=== PATIENT | male | born 1960 | race African-American/Black ===

== ENCOUNTER 2019-04-21 18:32 | Inpatient (IN) ==
[2019-04-21 22:14] LABS: Basophils # 0.1 10*3/uL (0.0-0.2); Basophils % 0.5 % (0.0-0.8); Eosinophils % 0.4 % (0.00-10.9); Hematocrit 35.8 VOL% (42.0-52.0); Hemoglobin 12.6 GM/DL (14.0-18.0); Immature Granulocytes % 0.7 %; Immature Granulocytes Absolute 0.08 #; Lymphocytes # 1.4 10*3/uL (1.4-4.0); Lymphocytes % 13.3 % (21.2-54.2); Mean Corpuscular HGB Conc 35.2 GM/DL (32-36); Mean Corpuscular Volume 83.6 FL (87-102); Mean Platelet Volume 11.1 FL (9.6-12.0); Monocytes % 15.7 % (1.7-12.7); Neutrophils % 69.4 % (38.7-73.9); Platelet Count 266 T/CUMM (130-400); Red Blood Count 4.28 MC/CUMM (3.8-5.5); Red Cell Distribution Width 18.7 % (9.3-17.3); White Blood Count 10.7 T/CUMM (4-12)
[2019-04-21 22:28] LABS: INR 1.1; PT Patient Result 12.3 SECS; Partial Thromboplastin Time 26.6 SECS (0-40)
[2019-04-21 22:36] LABS: Albumin 3.1 G/DL (3.4-5.0); Calcium 9.6 MG/DL (8.5-10.1); Osmolality,Calculated 281.3 MOS/KG (273-304); Total Protein 7.2 G/DL (6.4-8.3)
[2019-04-21 22:37] LABS: Eosinophils 1 % (0-10); Hypochromasia Slight; Lymphocytes 16 % (20-55); Platelet Estimate Adequate; Segmented Neutrophils 68 % (50-85); Target Cells 1+; Total Cells Counted 100
[2019-04-21 22:39] LABS: Bilirubin,Total 19.3 MG/DL (0.2-1.0)
[2019-04-22] MEDS ORDERED: ONDANSETRON 4 MG/2 ML VIAL IV PRN (00:07)
[2019-04-22] MEDS: hydrOXYzine HCL 25 MG TABLET PO PRN ×4 (01:56→22:46)
[2019-04-22 07:13] LABS: Basophils # 0.1 10*3/uL (0.0-0.2); Basophils % 0.5 % (0.0-0.8); Eosinophils # 0.1 10*3/uL (0.0-0.87); Eosinophils % 0.5 % (0.00-10.9); Hematocrit 32.8 VOL% (42.0-52.0); Hemoglobin 12.1 GM/DL (14.0-18.0); Immature Granulocytes % 1.2 %; Immature Granulocytes Absolute 0.11 #; Lymphocytes # 1.7 10*3/uL (1.4-4.0); Lymphocytes % 18.5 % (21.2-54.2); Mean Corpuscular HGB Conc 36.9 GM/DL (32-36); Mean Corpuscular Volume 81.8 FL (87-102); Monocytes % 17.7 % (1.7-12.7); Neutrophils % 61.6 % (38.7-73.9); Platelet Count 266 T/CUMM (130-400); Red Blood Count 4.01 MC/CUMM (3.8-5.5); Red Cell Distribution Width 18.7 % (9.3-17.3); White Blood Count 9.2 T/CUMM (4-12)
[2019-04-22 07:27] LABS: Albumin 2.7 G/DL (3.4-5.0); Calcium 9.4 MG/DL (8.5-10.1); Osmolality,Calculated 280.3 MOS/KG (273-304); Total Protein 6.9 G/DL (6.4-8.3)
[2019-04-22 07:33] LABS: Bilirubin,Total 17.5 MG/DL (0.2-1.0)
[2019-04-22 07:49] LABS: Eosinophils 2 % (0-10); Hypochromasia Slight; Lymphocytes 21 % (20-55); Platelet Estimate Adequate; Segmented Neutrophils 58 % (50-85); Target Cells Few; Total Cells Counted 100
[2019-04-22] MEDS ORDERED: POTASSIUM CHLORIDE 20 MEQ/15 ML UDCUP PER TUBE PRN (14:37)
[2019-04-22] MEDS: POTASSIUM CHLORIDE 20 MEQ TABLET PO PRN ×2 (20:46→23:10)
[2019-04-22] MEDS: amLODIPine 5 MG TABLET PO SCH (20:47)
[2019-04-23] MEDS: POTASSIUM CHLORIDE 20 MEQ TABLET PO PRN ×2 (01:14→04:07)
[2019-04-23] MEDS: hydrOXYzine HCL 25 MG TABLET PO PRN (04:06)
[2019-04-23 05:21] LABS: Basophils # 0.1 10*3/uL (0.0-0.2); Basophils % 0.5 % (0.0-0.8); Eosinophils # 0.1 10*3/uL (0.0-0.87); Eosinophils % 1.1 % (0.00-10.9); Hematocrit 32.7 VOL% (42.0-52.0); Hemoglobin 11.6 GM/DL (14.0-18.0); Immature Granulocytes % 0.6 %; Immature Granulocytes Absolute 0.06 #; Lymphocytes # 1.7 10*3/uL (1.4-4.0); Lymphocytes % 17.7 % (21.2-54.2); Mean Corpuscular HGB Conc 35.5 GM/DL (32-36); Mean Platelet Volume 11.7 FL (9.6-12.0); Monocytes % 17.5 % (1.7-12.7); Neutrophils % 62.6 % (38.7-73.9); Platelet Count 261 T/CUMM (130-400); Red Blood Count 3.94 MC/CUMM (3.8-5.5); White Blood Count 9.3 T/CUMM (4-12)
[2019-04-23 05:33] LABS: INR 1.2; PT Patient Result 12.7 SECS
[2019-04-23 05:45] LABS: Eosinophils 2 % (0-10); Hypochromasia 1+; Lymphocytes 19 % (20-55); Platelet Estimate Adequate; Segmented Neutrophils 64 % (50-85); Target Cells Few; Total Cells Counted 100
[2019-04-23 07:49] LABS: Osmolality,Calculated 280.3 MOS/KG (273-304)
[2019-04-23] MEDS ORDERED: INDOMETHACIN SUPP 50 MG SUPP RECTAL ONE (08:00)
[2019-04-23 08:34] LABS: Albumin 2.5 G/DL (3.4-5.0); Calcium 9.5 MG/DL (8.5-10.1); Osmolality,Calculated 280.3 MOS/KG (273-304); Total Protein 6.9 G/DL (6.4-8.3)
[2019-04-23 08:38] LABS: Bilirubin,Total 18.6 MG/DL (0.2-1.0)
[2019-04-23 08:45] LABS: Albumin 2.5 G/DL (3.4-5.0); Bilirubin,Direct 13.75 MG/DL (0.0-0.20); Total Protein 6.7 G/DL (6.4-8.3)
[2019-04-23 08:54] LABS: Bilirubin,Total 17.7 MG/DL (0.2-1.0)
[2019-04-23] MEDS ORDERED: SUCCINYLCHOLINE 200 MG/10 ML VIAL ONE ×2 (10:00→15:32)
[2019-04-23] MEDS ORDERED: PROPOFOL 200 MG/20 ML VIAL IV ONE ×2 (10:00→15:31)
[2019-04-23] MEDS ORDERED: ESMOLOL 100 MG/10 ML VIAL IV ONE ×2 (10:00→15:32)
[2019-04-23] MEDS ORDERED: PHENYLEPHRINE 1 MG/10 ML SYRINGE IV ONE ×2 (10:00→15:32)
[2019-04-23] MEDS ORDERED: LIDOCAINE 100 MG/5 ML SYRINGE ONE (10:00)
[2019-04-23] MEDS ORDERED: ROCURONIUM 100 MG/10 ML VIAL IV ONE ×2 (10:00→15:32)
[2019-04-23] MEDS ORDERED: GLYCOPYRROLATE 0.4 MG/2 ML VIAL ONE ×2 (10:00→15:32)
[2019-04-23] MEDS ORDERED: fentaNYL 100 MCG/2 ML VIAL ONE ×2 (10:04→15:32)
[2019-04-23] MEDS ORDERED: MIDAZOLAM 2 MG/2 ML VIAL ONE ×2 (10:04→13:17)
[2019-04-23] MEDS ORDERED: ePHEDrine 50 MG/ML AMP ONE (12:10)
[2019-04-23] MEDS: LACTATED RINGERS 1,000 ML IV SCH (12:12)
[2019-04-23] MEDS ORDERED: CIPROFLOXACIN 400 MG/200 ML PREMIX IV ONE (14:02)
[2019-04-23] MEDS ORDERED: HYDROmorphone 2 MG/1 ML VIAL ONE (15:20)
[2019-04-23] MEDS ORDERED: SEVOFLURANE 1 UNIT/15 MINUTE INH ONE (15:32)
[2019-04-23] MEDS ORDERED: NEOSTIGMINE 10 MG/10 ML VIAL ONE (15:32)
[2019-04-23] MEDS ORDERED: LACTATED RINGERS 2,000 ML IV ONE (15:32)
[2019-04-23] MEDS: CIPROFLOXACIN INJ 400 MG in PREMIX 1 EACH IV SCH (18:48)
[2019-04-23 19:42] LABS: Carcinoembryonic Antigen 2.9 NG/ML (0.0-5.0)
[2019-04-23] MEDS: amLODIPine 5 MG TABLET PO SCH (20:34)
[2019-04-24] MEDS: CIPROFLOXACIN INJ 400 MG in PREMIX 1 EACH IV SCH (05:45)
[2019-04-24 08:06] LABS: Basophils % 0.2 % (0.0-0.8); Hematocrit 35.3 VOL% (42.0-52.0); Hemoglobin 12.7 GM/DL (14.0-18.0); Immature Granulocytes % 0.7 %; Immature Granulocytes Absolute 0.11 #; Lymphocytes # 0.8 10*3/uL (1.4-4.0); Lymphocytes % 4.6 % (21.2-54.2); Mean Corpuscular Volume 82.7 FL (87-102); Mean Platelet Volume 10.9 FL (9.6-12.0); Neutrophils % 82.5 % (38.7-73.9); Platelet Count 264 T/CUMM (130-400); Red Blood Count 4.27 MC/CUMM (3.8-5.5); Red Cell Distribution Width 18.9 % (9.3-17.3); White Blood Count 16.2 T/CUMM (4-12)
[2019-04-24 08:35] LABS: Albumin 2.6 G/DL (3.4-5.0); Calcium 9.7 MG/DL (8.5-10.1); Osmolality,Calculated 276.7 MOS/KG (273-304); Total Protein 7.3 G/DL (6.4-8.3)
[2019-04-24 08:37] LABS: Lymphocytes 4 % (20-55); Platelet Estimate Adequate; Segmented Neutrophils 87 % (50-85); Total Cells Counted 100
[2019-04-24 08:38] LABS: Hypochromasia 1+; Target Cells Few
[2019-04-24 08:42] LABS: Bilirubin,Total 20.1 MG/DL (0.2-1.0)
[2019-04-24] MEDS: MORPHINE 4 MG/1 ML VIAL IV PRN ×4 (10:21→22:48)
[2019-04-24] MEDS: PIPERACILLIN/TAZOBACTAM 3,375 MG in SODIUM CHLORIDE 0.9% 100 ML IV SCH ×2 (13:17→20:29)
[2019-04-24 19:47] LABS: Apearance,Urine CLEAR (Clear); Bacteria,Urine Occasional /HPF (Few); Blood, Urine Moderate mg/dL (Negative); Glucose,Urine (UA) Negative (Negative); Ketones,Urine Negative (Negative); Mucus,Urine Occasional /LPF (Occasional); Nitrite,Urine Negative (Negative); Protein,Urine Negative; RBC,Urine 10 /HPF (0-4); Urine Specific Gravity 1.017 (1.001-1.035); WBC,Urine 10 /HPF (0-6)
[2019-04-24 19:49] LABS: Bilirubin,Urine Moderate mg/dL (Negative); Urine Color Dark yellow (Yellow)
[2019-04-24] MEDS: amLODIPine 5 MG TABLET PO SCH (20:30)
[2019-04-24] MEDS: LACTATED RINGERS 1,000 ML IV SCH (20:32)
[2019-04-24] MEDS: SIMETHICONE CHEW 80 MG TABLET PO PRN (22:42)
[2019-04-25] MEDS: MORPHINE 4 MG/1 ML VIAL IV PRN ×4 (03:18→19:44)
[2019-04-25] MEDS: SIMETHICONE CHEW 80 MG TABLET PO PRN ×4 (03:21→23:24)
[2019-04-25] MEDS: PIPERACILLIN/TAZOBACTAM 3,375 MG in SODIUM CHLORIDE 0.9% 100 ML IV SCH ×3 (03:30→20:49)
[2019-04-25 05:04] LABS: Basophils % 0.2 % (0.0-0.8); Eosinophils % 0.1 % (0.00-10.9); Hematocrit 35.3 VOL% (42.0-52.0); Hemoglobin 12.7 GM/DL (14.0-18.0); Immature Granulocytes % 0.6 %; Immature Granulocytes Absolute 0.13 #; Lymphocytes # 1.2 10*3/uL (1.4-4.0); Lymphocytes % 5.6 % (21.2-54.2); Mean Corpuscular Volume 83.5 FL (87-102); Monocytes % 9.9 % (1.7-12.7); Neutrophils % 83.6 % (38.7-73.9); Platelet Count 222 T/CUMM (130-400); Red Blood Count 4.23 MC/CUMM (3.8-5.5); Red Cell Distribution Width 19.6 % (9.3-17.3); White Blood Count 21.1 T/CUMM (4-12)
[2019-04-25 05:28] LABS: Albumin 2.5 G/DL (3.4-5.0); Calcium 9.5 MG/DL (8.5-10.1)
[2019-04-25 05:39] LABS: Bilirubin,Total 19.9 MG/DL (0.2-1.0)
[2019-04-25 06:34] LABS: Hypochromasia 1+; Target Cells Few
[2019-04-25 06:35] LABS: Microcytosis 1+; Platelet Estimate Normal
[2019-04-25] MEDS: LACTATED RINGERS 1,000 ML IV SCH (09:18)
[2019-04-25] MEDS: amLODIPine 5 MG TABLET PO SCH (20:49)
[2019-04-26] MEDS: MORPHINE 4 MG/1 ML VIAL IV PRN ×6 (00:24→23:45)
[2019-04-26] MEDS: PIPERACILLIN/TAZOBACTAM 3,375 MG in SODIUM CHLORIDE 0.9% 100 ML IV SCH ×2 (04:38→18:29)
[2019-04-26 05:27] LABS: Basophils # 0.1 10*3/uL (0.0-0.2); Basophils % 0.3 % (0.0-0.8); Eosinophils % 0.2 % (0.00-10.9); Hematocrit 32.7 VOL% (42.0-52.0); Hemoglobin 11.7 GM/DL (14.0-18.0); Immature Granulocytes % 1.7 %; Immature Granulocytes Absolute 0.42 #; Lymphocytes # 1.4 10*3/uL (1.4-4.0); Lymphocytes % 5.4 % (21.2-54.2); Mean Corpuscular HGB Conc 35.8 GM/DL (32-36); Mean Corpuscular Volume 83.2 FL (87-102); Mean Platelet Volume 10.9 FL (9.6-12.0); Neutrophils % 79.4 % (38.7-73.9); Platelet Count 192 T/CUMM (130-400); Red Blood Count 3.93 MC/CUMM (3.8-5.5); Red Cell Distribution Width 19.6 % (9.3-17.3); White Blood Count 25.3 T/CUMM (4-12)
[2019-04-26 05:54] LABS: Osmolality,Calculated 270.1 MOS/KG (273-304)
[2019-04-26 06:17] LABS: Lymphocytes 5 % (20-55); Segmented Neutrophils 83 % (50-85); Total Cells Counted 100
[2019-04-26 06:18] LABS: Stomatocytes Slight
[2019-04-26 06:20] LABS: Target Cells 2+
[2019-04-26 06:21] LABS: Anisocytosis 1+; Microcytosis 1+; Platelet Estimate Normal
[2019-04-26 07:56] LABS: Bilirubin,Direct 15.94 MG/DL (0.0-0.20); Total Protein 6.6 G/DL (6.4-8.3)
[2019-04-26] MEDS ORDERED: VANCOMYCIN INJ 1,000 MG in SODIUM CHLORIDE 0.9% 250 ML IV SCH (08:00)
[2019-04-26 08:04] LABS: Bilirubin,Indirect 5.3 MG/DL (0.0-1.0); Bilirubin,Total 21.2 MG/DL (0.2-1.0)
[2019-04-26] MEDS ORDERED: VANCOMYCIN INJ 1,500 MG in SODIUM CHLORIDE 0.9% 500 ML IV ONE (08:30)
[2019-04-26] MEDS ORDERED: NITROGLYCERIN SL 0.4 MG TABLET SL ONE (09:23)
[2019-04-26] MEDS: POTASSIUM CHLORIDE 20 MEQ TABLET PO PRN (09:47)
[2019-04-26] MEDS: SIMETHICONE CHEW 80 MG TABLET PO PRN (12:08)
[2019-04-26] MEDS: SODIUM CHLORIDE 0.9% 1,000 ML IV SCH (14:02)
[2019-04-26] MEDS ORDERED: DIAZEPAM 5 MG TABLET PO ONE (14:49)
[2019-04-26] MEDS: LACTATED RINGERS 1,000 ML IV SCH (15:40)
[2019-04-26] MEDS ORDERED: ONDANSETRON 4 MG/2 ML VIAL ONE (15:46)
[2019-04-26] MEDS ORDERED: MORPHINE 4 MG/1 ML VIAL IV ONE (16:13)
[2019-04-26] MEDS ORDERED: POTASSIUM CHLORIDE RIDER 10 MEQ in PREMIX 1 EACH IV PRN (18:10)
[2019-04-26] MEDS: amLODIPine 5 MG TABLET PO SCH (20:49)
[2019-04-26] MEDS: VANCOMYCIN INJ 1,250 MG in SODIUM CHLORIDE 0.9% 250 ML IV SCH (23:22)
[2019-04-27] MEDS: SODIUM CHLORIDE 0.9% 1,000 ML IV SCH ×4 (01:26→19:59)
[2019-04-27] MEDS: PIPERACILLIN/TAZOBACTAM 3,375 MG in SODIUM CHLORIDE 0.9% 100 ML IV SCH ×3 (01:27→17:51)
[2019-04-27] MEDS: MORPHINE 4 MG/1 ML VIAL IV PRN ×6 (02:40→21:31)
[2019-04-27 05:57] LABS: Basophils # 0.1 10*3/uL (0.0-0.2); Basophils % 0.2 % (0.0-0.8); Eosinophils # 0.1 10*3/uL (0.0-0.87); Eosinophils % 0.3 % (0.00-10.9); Hematocrit 32.3 VOL% (42.0-52.0); Hemoglobin 11.2 GM/DL (14.0-18.0); Immature Granulocytes % 1.6 %; Immature Granulocytes Absolute 0.41 #; Lymphocytes # 1.3 10*3/uL (1.4-4.0); Lymphocytes % 5.1 % (21.2-54.2); Mean Corpuscular HGB Conc 34.7 GM/DL (32-36); Mean Corpuscular Volume 85.4 FL (87-102); Mean Platelet Volume 11.3 FL (9.6-12.0); Monocytes % 12.4 % (1.7-12.7); Neutrophils % 80.4 % (38.7-73.9); Platelet Count 176 T/CUMM (130-400); Red Blood Count 3.78 MC/CUMM (3.8-5.5); Red Cell Distribution Width 19.7 % (9.3-17.3); White Blood Count 25.2 T/CUMM (4-12)
[2019-04-27 06:32] LABS: Albumin 2.1 G/DL (3.4-5.0); Bilirubin,Direct 18.1 MG/DL (0.0-0.20); Bilirubin,Indirect 3.6 MG/DL (0.0-1.0); Calcium 9.3 MG/DL (8.5-10.1); Osmolality,Calculated 276.5 MOS/KG (273-304); Total Protein 6.7 G/DL (6.4-8.3)
[2019-04-27 06:34] LABS: Bilirubin,Total 21.7 MG/DL (0.2-1.0)
[2019-04-27 06:41] LABS: Anisocytosis 1+; Eosinophils 2 % (0-10); Hypochromasia 1+; Lymphocytes 6 % (20-55); Macrocytosis Slight; Microcytosis 1+; Ovalocytes Few; Platelet Estimate Adequate; Segmented Neutrophils 78 % (50-85); Target Cells 1+; Total Cells Counted 100
[2019-04-27] MEDS: VANCOMYCIN INJ 1,250 MG in SODIUM CHLORIDE 0.9% 250 ML IV SCH ×2 (11:37→14:32)
[2019-04-27] MEDS: POTASSIUM CHLORIDE 20 MEQ TABLET PO PRN ×2 (17:51→19:33)
[2019-04-27] MEDS: amLODIPine 5 MG TABLET PO SCH (21:32)
[2019-04-28] MEDS: MORPHINE 4 MG/1 ML VIAL IV PRN ×5 (01:07→22:11)
[2019-04-28 01:21] LABS: Albumin 1.9 G/DL (3.4-5.0); Bilirubin,Direct 14.94 MG/DL (0.0-0.20); Bilirubin,Indirect 4.2 MG/DL (0.0-1.0); Calcium 8.9 MG/DL (8.5-10.1); Osmolality,Calculated 276.5 MOS/KG (273-304); Total Protein 6.2 G/DL (6.4-8.3)
[2019-04-28 01:23] LABS: Bilirubin,Total 19.1 MG/DL (0.2-1.0)
[2019-04-28] MEDS: VANCOMYCIN INJ 1,250 MG in SODIUM CHLORIDE 0.9% 250 ML IV SCH ×2 (01:23→13:24)
[2019-04-28 01:27] LABS: Basophils # 0.1 10*3/uL (0.0-0.2); Basophils % 0.2 % (0.0-0.8); Eosinophils # 0.1 10*3/uL (0.0-0.87); Eosinophils % 0.4 % (0.00-10.9); Hemoglobin 10.8 GM/DL (14.0-18.0); Immature Granulocytes % 1.7 %; Lymphocytes # 1.3 10*3/uL (1.4-4.0); Lymphocytes % 5.6 % (21.2-54.2); Mean Platelet Volume 11.5 FL (9.6-12.0); Monocytes % 13.8 % (1.7-12.7); Neutrophils % 78.3 % (38.7-73.9); Platelet Count 184 T/CUMM (130-400); Red Blood Count 3.57 MC/CUMM (3.8-5.5); White Blood Count 23.3 T/CUMM (4-12)
[2019-04-28 02:59] LABS: Lymphocytes 9 % (20-55); Segmented Neutrophils 84 % (50-85); Total Cells Counted 100
[2019-04-28 03:00] LABS: Anisocytosis 1+; Hypochromasia 1+; Microcytosis 1+; Ovalocytes 1+; Platelet Estimate Adequate; Target Cells 1+
[2019-04-28] MEDS: PIPERACILLIN/TAZOBACTAM 3,375 MG in SODIUM CHLORIDE 0.9% 100 ML IV SCH ×3 (03:28→17:47)
[2019-04-28] MEDS: SODIUM CHLORIDE 0.9% 1,000 ML IV SCH ×4 (04:30→23:07)
[2019-04-28] MEDS: POTASSIUM CHLORIDE 20 MEQ TABLET PO PRN ×3 (05:33→17:47)
[2019-04-28] MEDS: amLODIPine 5 MG TABLET PO SCH (21:11)
[2019-04-29 01:08] LABS: Basophils # 0.1 10*3/uL (0.0-0.2); Basophils % 0.3 % (0.0-0.8); Eosinophils # 0.2 10*3/uL (0.0-0.87); Hematocrit 28.3 VOL% (42.0-52.0); Hemoglobin 10.1 GM/DL (14.0-18.0); Immature Granulocytes % 1.8 %; Immature Granulocytes Absolute 0.33 #; Lymphocytes # 1.5 10*3/uL (1.4-4.0); Mean Corpuscular HGB Conc 35.7 GM/DL (32-36); Mean Corpuscular Volume 84.5 FL (87-102); Mean Platelet Volume 10.2 FL (9.6-12.0); Monocytes % 15.5 % (1.7-12.7); Neutrophils % 73.4 % (38.7-73.9); Platelet Count 220 T/CUMM (130-400); Red Blood Count 3.35 MC/CUMM (3.8-5.5); Red Cell Distribution Width 18.8 % (9.3-17.3); White Blood Count 18.8 T/CUMM (4-12)
[2019-04-29 01:27] LABS: Albumin 1.6 G/DL (3.4-5.0); Bilirubin,Direct 13.13 MG/DL (0.0-0.20); Calcium 8.5 MG/DL (8.5-10.1); Osmolality,Calculated 274.7 MOS/KG (273-304); Total Protein 5.9 G/DL (6.4-8.3)
[2019-04-29 01:39] LABS: Bilirubin,Total 16.1 MG/DL (0.2-1.0)
[2019-04-29] MEDS: MORPHINE 4 MG/1 ML VIAL IV PRN ×4 (01:49→20:39)
[2019-04-29] MEDS: POTASSIUM CHLORIDE 20 MEQ TABLET PO PRN ×2 (01:51→03:49)
[2019-04-29] MEDS: VANCOMYCIN INJ 1,250 MG in SODIUM CHLORIDE 0.9% 250 ML IV SCH ×2 (01:51→14:20)
[2019-04-29] MEDS: PIPERACILLIN/TAZOBACTAM 3,375 MG in SODIUM CHLORIDE 0.9% 100 ML IV SCH ×3 (03:49→20:44)
[2019-04-29] MEDS: SODIUM CHLORIDE 0.9% 1,000 ML IV SCH ×2 (08:41→21:47)
[2019-04-29] MEDS ORDERED: SIMETHICONE CHEW 80 MG TABLET PO SCH (12:00)
[2019-04-29] MEDS: amLODIPine 5 MG TABLET PO SCH (20:44)
[2019-04-30] MEDS: VANCOMYCIN INJ 1,250 MG in SODIUM CHLORIDE 0.9% 250 ML IV SCH ×2 (01:57→16:14)
[2019-04-30] MEDS: MORPHINE 4 MG/1 ML VIAL IV PRN ×4 (04:34→20:53)
[2019-04-30] MEDS: PIPERACILLIN/TAZOBACTAM 3,375 MG in SODIUM CHLORIDE 0.9% 100 ML IV SCH ×3 (04:37→20:58)
[2019-04-30 04:47] LABS: Basophils # 0.1 10*3/uL (0.0-0.2); Basophils % 0.6 % (0.0-0.8); Eosinophils # 0.2 10*3/uL (0.0-0.87); Eosinophils % 1.4 % (0.00-10.9); Hemoglobin 10.7 GM/DL (14.0-18.0); Immature Granulocytes % 2.9 %; Immature Granulocytes Absolute 0.51 #; Lymphocytes # 1.7 10*3/uL (1.4-4.0); Lymphocytes % 9.6 % (21.2-54.2); Mean Corpuscular HGB Conc 34.5 GM/DL (32-36); Mean Corpuscular Volume 85.6 FL (87-102); Monocytes % 14.9 % (1.7-12.7); Neutrophils % 70.6 % (38.7-73.9); Platelet Count 262 T/CUMM (130-400); Red Blood Count 3.62 MC/CUMM (3.8-5.5); Red Cell Distribution Width 18.8 % (9.3-17.3); White Blood Count 17.5 T/CUMM (4-12)
[2019-04-30 05:18] LABS: Albumin 1.9 G/DL (3.4-5.0); Bilirubin,Direct 11.98 MG/DL (0.0-0.20); Calcium 9.1 MG/DL (8.5-10.1); Osmolality,Calculated 273.7 MOS/KG (273-304); Total Protein 6.7 G/DL (6.4-8.3)
[2019-04-30 05:26] LABS: Bilirubin,Indirect 3.1 MG/DL (0.0-1.0); Bilirubin,Total 15.1 MG/DL (0.2-1.0)
[2019-04-30 05:54] LABS: Eosinophils 2 % (0-10); Lymphocytes 6 % (20-55); Segmented Neutrophils 77 % (50-85); Total Cells Counted 100
[2019-04-30 05:55] LABS: Anisocytosis 1+; Microcytosis 1+; Target Cells 2+
[2019-04-30 05:56] LABS: Polychromasia Slight
[2019-04-30 05:57] LABS: Platelet Estimate Normal
[2019-04-30] MEDS: POLYETHYLENE GLYCOL POWDER 17 GM PACK PO SCH (12:18)
[2019-04-30] MEDS: POTASSIUM CHLORIDE 20 MEQ TABLET PO PRN ×3 (12:18→19:16)
[2019-04-30] MEDS: SODIUM CHLORIDE 0.9% 1,000 ML IV SCH (12:19)
[2019-04-30] MEDS: amLODIPine 5 MG TABLET PO SCH (20:55)
[2019-05-01] MEDS: MORPHINE 4 MG/1 ML VIAL IV PRN ×5 (00:33→20:20)
[2019-05-01 01:46] LABS: Basophils # 0.1 10*3/uL (0.0-0.2); Basophils % 0.5 % (0.0-0.8); Eosinophils # 0.2 10*3/uL (0.0-0.87); Eosinophils % 1.3 % (0.00-10.9); Hematocrit 31.2 VOL% (42.0-52.0); Hemoglobin 10.6 GM/DL (14.0-18.0); Immature Granulocytes % 3.4 %; Immature Granulocytes Absolute 0.57 #; Lymphocytes # 1.5 10*3/uL (1.4-4.0); Mean Corpuscular Volume 87.4 FL (87-102); Mean Platelet Volume 10.4 FL (9.6-12.0); Monocytes % 14.6 % (1.7-12.7); Neutrophils % 71.2 % (38.7-73.9); Platelet Count 273 T/CUMM (130-400); Red Blood Count 3.57 MC/CUMM (3.8-5.5); Red Cell Distribution Width 18.8 % (9.3-17.3)
[2019-05-01 02:05] LABS: Albumin 1.9 G/DL (3.4-5.0); Bilirubin,Direct 10.95 MG/DL (0.0-0.20); Bilirubin,Indirect 2.7 MG/DL (0.0-1.0); Calcium 8.9 MG/DL (8.5-10.1); Osmolality,Calculated 277.5 MOS/KG (273-304); Total Protein 6.6 G/DL (6.4-8.3)
[2019-05-01 02:08] LABS: Bilirubin,Total 13.6 MG/DL (0.2-1.0)
[2019-05-01 02:27] LABS: Platelet Estimate Adequate
[2019-05-01] MEDS: VANCOMYCIN INJ 1,250 MG in SODIUM CHLORIDE 0.9% 250 ML IV SCH ×2 (02:52→16:56)
[2019-05-01] MEDS: PIPERACILLIN/TAZOBACTAM 3,375 MG in SODIUM CHLORIDE 0.9% 100 ML IV SCH ×3 (04:58→20:40)
[2019-05-01] MEDS: POLYETHYLENE GLYCOL POWDER 17 GM PACK PO SCH (09:28)
[2019-05-01] MEDS: SODIUM CHLORIDE 0.9% 1,000 ML IV SCH (09:28)
[2019-05-01] MEDS: amLODIPine 5 MG TABLET PO SCH (20:19)
[2019-05-02] MEDS: MORPHINE 4 MG/1 ML VIAL IV PRN ×5 (01:23→21:23)
[2019-05-02] MEDS: PIPERACILLIN/TAZOBACTAM 3,375 MG in SODIUM CHLORIDE 0.9% 100 ML IV SCH ×3 (03:32→21:27)
[2019-05-02] MEDS: SODIUM CHLORIDE 0.9% 1,000 ML IV SCH ×2 (03:32→03:39)
[2019-05-02 04:41] LABS: Basophils # 0.1 10*3/uL (0.0-0.2); Basophils % 0.3 % (0.0-0.8); Eosinophils # 0.2 10*3/uL (0.0-0.87); Eosinophils % 0.7 % (0.00-10.9); Hematocrit 28.8 VOL% (42.0-52.0); Hemoglobin 9.8 GM/DL (14.0-18.0); Immature Granulocytes Absolute 0.83 #; Lymphocytes # 1.9 10*3/uL (1.4-4.0); Lymphocytes % 9.1 % (21.2-54.2); Mean Corpuscular Volume 88.3 FL (87-102); Mean Platelet Volume 10.9 FL (9.6-12.0); Monocytes % 13.4 % (1.7-12.7); Neutrophils % 72.5 % (38.7-73.9); Platelet Count 278 T/CUMM (130-400); Red Blood Count 3.26 MC/CUMM (3.8-5.5); Red Cell Distribution Width 18.2 % (9.3-17.3); White Blood Count 20.8 T/CUMM (4-12)
[2019-05-02 05:11] LABS: Albumin 1.7 G/DL (3.4-5.0); Bilirubin,Direct 9.37 MG/DL (0.0-0.20); Bilirubin,Indirect 2.1 MG/DL (0.0-1.0); Bilirubin,Total 11.5 MG/DL (0.2-1.0); Calcium 8.8 MG/DL (8.5-10.1); Osmolality,Calculated 274.7 MOS/KG (273-304); Total Protein 6.2 G/DL (6.4-8.3)
[2019-05-02 05:43] LABS: Band Neutrophils 2 % (0-10); Eosinophils 1 % (0-10); Lymphocytes 4 % (20-55); Metamyelocytes 2 %; Myelocytes 2 %; Segmented Neutrophils 81 % (50-85); Total Cells Counted 100
[2019-05-02 05:44] LABS: Anisocytosis 2+; Microcytosis 1+; Target Cells 1+
[2019-05-02 05:45] LABS: Platelet Estimate Normal; Polychromasia Slight
[2019-05-02] MEDS: POLYETHYLENE GLYCOL POWDER 17 GM PACK PO SCH (08:57)
[2019-05-02] MEDS: POTASSIUM CHLORIDE 20 MEQ TABLET PO PRN (08:57)
[2019-05-02] MEDS: VANCOMYCIN INJ 1,250 MG in SODIUM CHLORIDE 0.9% 250 ML IV SCH (08:58)
[2019-05-02] MEDS: amLODIPine 5 MG TABLET PO SCH (21:22)
[2019-05-03] MEDS: MORPHINE 4 MG/1 ML VIAL IV PRN (01:26)
[2019-05-03] MEDS: VANCOMYCIN INJ 1,250 MG in SODIUM CHLORIDE 0.9% 250 ML IV SCH (01:29)
[2019-05-03 04:36] VITALS: BP 118/72
== END 2019-05-03 05:40 | disposition home or self-care (01) | DRG 444 ==
LOC: N.ED 18:32 → N.EDINP 04-22 00:07 → N.3E 04-22 01:02
PROVIDERS: ADMIT Internal Medicine; ATTEND Internal Medicine

== ENCOUNTER 2020-10-30 12:17 | Inpatient (IN) ==
[2020-10-30 14:06] LABS: Albumin 2.8 G/DL (3.4-5.0); Bilirubin,Total 0.7 MG/DL (0.2-1.0); Calcium 8.9 MG/DL (8.5-10.1); Osmolality,Calculated 267.4 MOS/KG (273-304); Total Protein 7.7 G/DL (6.4-8.3)
[2020-10-30 14:09] LABS: Ferritin 516.5 ng/ml (26-388)
[2020-10-30 14:10] LABS: Basophils % 0.2 % (0.0-0.8); Hematocrit 47.5 VOL% (42.0-52.0); Hemoglobin 16.8 GM/DL (14.0-18.0); Immature Granulocytes % 0.4 %; Immature Granulocytes Absolute 0.02 #; Lymphocytes # 0.6 10*3/uL (1.4-4.0); Lymphocytes % 11.3 % (21.2-54.2); Mean Corpuscular HGB Conc 35.4 GM/DL (32-36); Mean Corpuscular Volume 86.8 FL (87-102); Mean Platelet Volume 11.9 FL (9.6-12.0); Monocytes % 9.1 % (1.7-12.7); Platelet Count 115 T/CUMM (130-400); Red Blood Count 5.47 MC/CUMM (3.8-5.5); Red Cell Distribution Width 13.5 % (9.3-17.3)
[2020-10-30] MEDS ORDERED: cefTRIAXone 1,000 MG in SODIUM CHLORIDE 0.9% 100 ML IV STA (14:36)
[2020-10-30] MEDS ORDERED: SODIUM CHLORIDE 0.9% 1,000 ML IV STA (14:36)
[2020-10-30] MEDS ORDERED: GLUCAGON 1 MG VIAL IM PRN (15:35)
[2020-10-30] MEDS ORDERED: BENZONATATE 100 MG CAPSULE PO PRN (15:35)
[2020-10-30] MEDS ORDERED: ONDANSETRON 4 MG/2 ML VIAL IV PRN (15:35)
[2020-10-30] MEDS ORDERED: DEXTROSE 50% 25 GM/50 ML VIAL IV PRN (15:35)
[2020-10-30] MEDS ORDERED: CETIRIZINE 10 MG TABLET PO PRN (15:35)
[2020-10-30 16:35] LABS: Risk Ratio 2.47; Thyroid Stimulating Hormone 0.632 uIU/ml (0.358-3.74); VLDL CHOLESTEROL 15.2 MG/DL
[2020-10-30] MEDS: DEXAMETHASONE 4 MG/1 ML VIAL IV SCH (17:37)
[2020-10-30] MEDS: CHOLECALCIFEROL 1,000 UNIT TABLET PO SCH (17:37)
[2020-10-30] MEDS: AZITHROMYCIN INJ 500 MG in SODIUM CHLORIDE 0.9% 250 ML IV SCH (17:38)
[2020-10-30] MEDS: ACETAMINOPHEN 325 MG TABLET PO PRN (18:55)
[2020-10-30 20:08] LABS: Bilirubin,Urine Negative (Negative); Blood, Urine Negative (Negative); Glucose,Urine (UA) Negative (Negative); Ketones,Urine 5 mg/dL (Negative); Mucus,Urine Occasional /LPF (Occasional); Nitrite,Urine Negative (Negative); Protein,Urine 30 MG/DL; RBC,Urine 2 /HPF (0-4); Urine Appearance CLEAR (Clear); Urine Color Yellow (Yellow); Urine Specific Gravity 1.013 (1.001-1.035); WBC,Urine 2 /HPF (0-6)
[2020-10-30] MEDS: ENOXAPARIN 40 MG/0.4 ML SYRINGE SUBCUT SCH (20:32)
[2020-10-30] MEDS: ASCORBIC ACID 500 MG TABLET PO SCH (20:33)
[2020-10-30] MEDS: amLODIPine 5 MG TABLET PO SCH (20:33)
[2020-10-30] MEDS: FAMOTIDINE 20 MG TABLET PO SCH (20:33)
[2020-10-31 06:20] LABS: Basophils % 0.2 % (0.0-0.8); Hematocrit 45.3 VOL% (42.0-52.0); Hemoglobin 16.2 GM/DL (14.0-18.0); Immature Granulocytes % 0.4 %; Immature Granulocytes Absolute 0.02 #; Lymphocytes # 0.7 10*3/uL (1.4-4.0); Lymphocytes % 13.1 % (21.2-54.2); Mean Corpuscular HGB Conc 35.8 GM/DL (32-36); Mean Corpuscular Volume 86.6 FL (87-102); Mean Platelet Volume 10.8 FL (9.6-12.0); Neutrophils % 79.3 % (38.7-73.9); Red Blood Count 5.23 MC/CUMM (3.8-5.5); Red Cell Distribution Width 13.7 % (9.3-17.3)
[2020-10-31 06:24] LABS: Platelet Count 135 T/CUMM (130-400)
[2020-10-31 06:38] LABS: Calcium 8.9 MG/DL (8.5-10.1); Osmolality,Calculated 275.8 MOS/KG (273-304)
[2020-10-31 06:49] LABS: Lymphocytes 14 % (20-55); Platelet Estimate Normal; Segmented Neutrophils 79 % (50-85); Total Cells Counted 100
[2020-10-31 08:39] LABS: Albumin 2.5 G/DL (3.4-5.0); Bilirubin,Direct 0.29 MG/DL (0.0-0.20); Bilirubin,Indirect 0.4 MG/DL (0.0-1.0); Bilirubin,Total 0.7 MG/DL (0.2-1.0); Total Protein 7.5 G/DL (6.4-8.3)
[2020-10-31] MEDS: DEXAMETHASONE 4 MG/1 ML VIAL IV SCH (09:13)
[2020-10-31] MEDS: cefTRIAXone 1,000 MG in SYRINGE 1 EACH IV SCH (09:13)
[2020-10-31] MEDS: AZITHROMYCIN INJ 500 MG in SODIUM CHLORIDE 0.9% 250 ML IV SCH (09:13)
[2020-10-31] MEDS: ASCORBIC ACID 500 MG TABLET PO SCH ×2 (09:13→20:47)
[2020-10-31] MEDS: CHOLECALCIFEROL 1,000 UNIT TABLET PO SCH (09:13)
[2020-10-31] MEDS: ZINC SULFATE 220 MG CAPSULE PO SCH (09:13)
[2020-10-31] MEDS ORDERED: REMDESIVIR 200 MG in SODIUM CHLORIDE 0.9% 210 ML IV ONE (11:00)
[2020-10-31] MEDS: FAMOTIDINE 20 MG TABLET PO SCH (20:46)
[2020-10-31] MEDS: amLODIPine 5 MG TABLET PO SCH (20:46)
[2020-10-31] MEDS: ENOXAPARIN 40 MG/0.4 ML SYRINGE SUBCUT SCH (20:46)
[2020-10-31] MEDS: ALPRAZolam 0.25 MG TABLET PO PRN (22:33)
[2020-11-01 06:05] LABS: Basophils % 0.1 % (0.0-0.8); Hematocrit 44.7 VOL% (42.0-52.0); Hemoglobin 15.9 GM/DL (14.0-18.0); Immature Granulocytes % 0.9 %; Immature Granulocytes Absolute 0.13 #; Lymphocytes # 0.9 10*3/uL (1.4-4.0); Lymphocytes % 6.2 % (21.2-54.2); Mean Corpuscular HGB Conc 35.6 GM/DL (32-36); Mean Corpuscular Volume 86.3 FL (87-102); Mean Platelet Volume 10.5 FL (9.6-12.0); Monocytes % 7.8 % (1.7-12.7); Platelet Count 183 T/CUMM (130-400); Red Blood Count 5.18 MC/CUMM (3.8-5.5); Red Cell Distribution Width 13.5 % (9.3-17.3); White Blood Count 14.4 T/CUMM (4-12)
[2020-11-01 06:23] LABS: Albumin 2.5 G/DL (3.4-5.0); Bilirubin,Total 0.8 MG/DL (0.2-1.0); Calcium 9.1 MG/DL (8.5-10.1); Osmolality,Calculated 277.8 MOS/KG (273-304); Total Protein 7.3 G/DL (6.4-8.3)
[2020-11-01] MEDS: cefTRIAXone 1,000 MG in SYRINGE 1 EACH IV SCH (08:21)
[2020-11-01] MEDS: DEXAMETHASONE 4 MG/1 ML VIAL IV SCH (08:22)
[2020-11-01] MEDS: ASCORBIC ACID 500 MG TABLET PO SCH ×2 (08:22→20:50)
[2020-11-01] MEDS: ZINC SULFATE 220 MG CAPSULE PO SCH (08:22)
[2020-11-01] MEDS: CHOLECALCIFEROL 1,000 UNIT TABLET PO SCH (08:22)
[2020-11-01] MEDS: AZITHROMYCIN INJ 500 MG in SODIUM CHLORIDE 0.9% 250 ML IV SCH (08:23)
[2020-11-01] MEDS: REMDESIVIR 100 MG in SODIUM CHLORIDE 0.9% 230 ML IV SCH (09:58)
[2020-11-01] MEDS ORDERED: LORazepam 2 MG/1 ML VIAL IV PRN (11:21)
[2020-11-01] MEDS: ACETAMINOPHEN 325 MG TABLET PO PRN (18:20)
[2020-11-01] MEDS: ENOXAPARIN 40 MG/0.4 ML SYRINGE SUBCUT SCH (20:50)
[2020-11-01] MEDS: amLODIPine 5 MG TABLET PO SCH (20:50)
[2020-11-01] MEDS: FAMOTIDINE 20 MG TABLET PO SCH (20:50)
[2020-11-02] MEDS: ALBUTEROL INHALER 18 GM INH SCH ×4 (01:10→19:04)
[2020-11-02 04:29] LABS: ABG HCO3 22.8 MMOL/L (20-26); ABG PO2 70.6 MM HG (80-95); ABG TCO2 23.7 MMOL/L (23-27)
[2020-11-02 04:30] LABS: ABG Oxygen Saturation 95.3 % (95-100)
[2020-11-02 06:03] LABS: Basophils % 0.1 % (0.0-0.8); Hematocrit 44.4 VOL% (42.0-52.0); Hemoglobin 15.7 GM/DL (14.0-18.0); Immature Granulocytes % 0.8 %; Immature Granulocytes Absolute 0.12 #; Lymphocytes # 0.8 10*3/uL (1.4-4.0); Lymphocytes % 5.4 % (21.2-54.2); Mean Corpuscular HGB Conc 35.4 GM/DL (32-36); Mean Corpuscular Volume 86.7 FL (87-102); Mean Platelet Volume 10.8 FL (9.6-12.0); Monocytes % 8.8 % (1.7-12.7); Neutrophils % 84.9 % (38.7-73.9); Platelet Count 211 T/CUMM (130-400); Red Blood Count 5.12 MC/CUMM (3.8-5.5); Red Cell Distribution Width 13.7 % (9.3-17.3); White Blood Count 14.7 T/CUMM (4-12)
[2020-11-02 06:35] LABS: Albumin 2.4 G/DL (3.4-5.0); Calcium 8.9 MG/DL (8.5-10.1); Osmolality,Calculated 282.5 MOS/KG (273-304)
[2020-11-02] MEDS: REMDESIVIR 100 MG in SODIUM CHLORIDE 0.9% 230 ML IV SCH (10:07)
[2020-11-02] MEDS: DEXAMETHASONE 4 MG/1 ML VIAL IV SCH (10:08)
[2020-11-02] MEDS: CHOLECALCIFEROL 1,000 UNIT TABLET PO SCH (10:08)
[2020-11-02] MEDS: ZINC SULFATE 220 MG CAPSULE PO SCH (10:08)
[2020-11-02] MEDS: ASCORBIC ACID 500 MG TABLET PO SCH ×2 (10:08→20:24)
[2020-11-02] MEDS: cefTRIAXone 1,000 MG in SYRINGE 1 EACH IV SCH (10:08)
[2020-11-02] MEDS: ACETAMINOPHEN 325 MG TABLET PO PRN ×2 (15:05→20:24)
[2020-11-02] MEDS: amLODIPine 5 MG TABLET PO SCH (20:24)
[2020-11-02] MEDS: ALPRAZolam 0.25 MG TABLET PO PRN (20:24)
[2020-11-02] MEDS: ENOXAPARIN 40 MG/0.4 ML SYRINGE SUBCUT SCH (20:24)
[2020-11-02] MEDS: FAMOTIDINE 20 MG TABLET PO SCH (20:24)
[2020-11-03] MEDS: ALBUTEROL INHALER 18 GM INH SCH ×4 (04:55→19:40)
[2020-11-03 06:31] LABS: Basophils % 0.1 % (0.0-0.8); Hematocrit 44.4 VOL% (42.0-52.0); Hemoglobin 15.7 GM/DL (14.0-18.0); Immature Granulocytes % 0.5 %; Immature Granulocytes Absolute 0.05 #; Lymphocytes # 1.4 10*3/uL (1.4-4.0); Lymphocytes % 13.5 % (21.2-54.2); Mean Corpuscular HGB Conc 35.4 GM/DL (32-36); Mean Corpuscular Volume 87.1 FL (87-102); Mean Platelet Volume 10.7 FL (9.6-12.0); Monocytes % 13.4 % (1.7-12.7); Neutrophils % 72.5 % (38.7-73.9); Platelet Count 228 T/CUMM (130-400); Red Cell Distribution Width 13.7 % (9.3-17.3); White Blood Count 10.2 T/CUMM (4-12)
[2020-11-03 06:59] LABS: Albumin 2.7 G/DL (3.4-5.0); Calcium 8.9 MG/DL (8.5-10.1); Osmolality,Calculated 281.3 MOS/KG (273-304); Total Protein 7.2 G/DL (6.4-8.3)
[2020-11-03] MEDS: CHOLECALCIFEROL 1,000 UNIT TABLET PO SCH (08:45)
[2020-11-03] MEDS: ASCORBIC ACID 500 MG TABLET PO SCH ×3 (08:45→20:03)
[2020-11-03] MEDS: ZINC SULFATE 220 MG CAPSULE PO SCH (08:45)
[2020-11-03] MEDS: cefTRIAXone 1,000 MG in SYRINGE 1 EACH IV SCH (09:18)
[2020-11-03] MEDS: DEXAMETHASONE 4 MG/1 ML VIAL IV SCH (09:18)
[2020-11-03] MEDS: REMDESIVIR 100 MG in SODIUM CHLORIDE 0.9% 230 ML IV SCH (09:18)
[2020-11-03] MEDS: ALPRAZolam 0.25 MG TABLET PO PRN (19:39)
[2020-11-03] MEDS: amLODIPine 5 MG TABLET PO SCH ×2 (19:39→20:03)
[2020-11-03] MEDS: ENOXAPARIN 40 MG/0.4 ML SYRINGE SUBCUT SCH ×2 (19:39→20:02)
[2020-11-03] MEDS: FAMOTIDINE 20 MG TABLET PO SCH ×2 (19:40→20:03)
[2020-11-04] MEDS: ALBUTEROL INHALER 18 GM INH SCH ×3 (00:39→12:24)
[2020-11-04 06:12] LABS: Basophils % 0.1 % (0.0-0.8); Hematocrit 43.2 VOL% (42.0-52.0); Hemoglobin 15.5 GM/DL (14.0-18.0); Immature Granulocytes % 0.4 %; Immature Granulocytes Absolute 0.05 #; Lymphocytes # 1.2 10*3/uL (1.4-4.0); Lymphocytes % 10.4 % (21.2-54.2); Mean Corpuscular HGB Conc 35.9 GM/DL (32-36); Mean Corpuscular Volume 85.4 FL (87-102); Mean Platelet Volume 10.2 FL (9.6-12.0); Monocytes % 17.3 % (1.7-12.7); Neutrophils % 71.8 % (38.7-73.9); Platelet Count 223 T/CUMM (130-400); Red Blood Count 5.06 MC/CUMM (3.8-5.5); Red Cell Distribution Width 13.7 % (9.3-17.3); White Blood Count 11.7 T/CUMM (4-12)
[2020-11-04 06:29] LABS: Calcium 8.9 MG/DL (8.5-10.1); Osmolality,Calculated 280.5 MOS/KG (273-304)
[2020-11-04 06:33] LABS: Hypochromasia 1+; Lymphocytes 10 % (20-55); Microcytosis 1+; Platelet Estimate Adequate; Segmented Neutrophils 76 % (50-85); Total Cells Counted 100
[2020-11-04 06:51] LABS: Albumin 2.6 G/DL (3.4-5.0); Bilirubin,Total 0.6 MG/DL (0.2-1.0); Calcium 8.4 MG/DL (8.5-10.1); Osmolality,Calculated 279.5 MOS/KG (273-304); Total Protein 6.5 G/DL (6.4-8.3)
[2020-11-04] MEDS: REMDESIVIR 100 MG in SODIUM CHLORIDE 0.9% 230 ML IV SCH (08:48)
[2020-11-04] MEDS: DEXAMETHASONE 4 MG/1 ML VIAL IV SCH (08:48)
[2020-11-04] MEDS: ASCORBIC ACID 500 MG TABLET PO SCH (08:49)
[2020-11-04] MEDS: cefTRIAXone 1,000 MG in SYRINGE 1 EACH IV SCH (08:49)
[2020-11-04] MEDS: CHOLECALCIFEROL 1,000 UNIT TABLET PO SCH (08:49)
[2020-11-04] MEDS: ZINC SULFATE 220 MG CAPSULE PO SCH (08:49)
[2020-11-04 11:58] VITALS: BP 111/80
== END 2020-11-04 13:09 | disposition home or self-care (01) | DRG 177 ==
LOC: N.ED 12:17 → N.EDINP 12:17 → N.2E 16:04 → SUATTDRO 10-31 16:57
PROVIDERS: ADMIT Family Medicine; ATTEND Internal Medicine